=== PATIENT | male | born 1990 | race Caucasian/White ===

== ENCOUNTER 2019-07-01 21:28 | Emergency (ER) | payer OTHER ==
[~2019-07-01] VITALS: Ht 188 cm; Wt 118.2 kg
--- NOTE | 2019-07-01 21:50 | NUR ---
PT LEFT BIG TOE WITH NAIL BED PILLED BACK MINIMAL DRAINAGE PT TOLERATING WELL WAS ABLE TO AMBULATE TO ROOM 2
[2019-07-01] MEDS ORDERED: LIDOcaine 1% 30ml preserv. free vial IJ ONE (22:05)
[2019-07-01 23:03] VITALS: BP 132/74
== END 2019-07-01 23:00 | disposition home or self-care (01) ==
LOC: ER 21:29
DX: S91.212A Laceration without foreign body of left great toe with damage to nail, initial encounter (principal); W22.8XXA Striking against or struck by other objects, initial encounter; Y93.89 Activity, other specified; Y92.89 Other specified places as the place of occurrence of the external cause; Y99.8 Other external cause status
CPT/HCPCS: 11730; 99284